=== PATIENT | female | born 1995 | race Caucasian/White ===

== ENCOUNTER 2024-03-26 15:33 | Outpatient (AMB) | payer OTHER, SELFPAY ==
--- NOTE | 2024-03-26 15:39 | MHC.PC.OV ---
Vital Signs 03/26/24 15:40 Height 5 ft 4.57 in Weight 148 lb 8 oz BMI 25.0 BP 134/60 Blood Pressure Location Lt brachial Position Sitting Pulse 110 H Pulse Source Pulse Oximeter Temp 97.3 F Temp Source Skin Pulse Oximetry (%) 97 Oxygen Delivery Method Room Air Intake Visit Reasons: establish care Intake Note: Patient is a new patient here to establish care for Depression, Sever Anxiety, PTSD, ADHD, Pre-diabetes and insulin resistant. Transferring care from Dr Dov Duval ([facility]) . Medical records have not been requested and have not received. Trade Manager Required: No Chief Program Officer: Not Required per policy Accompanied by: Self / Same As Patient Allergies hepatitis A virus vaccine Allergy (Intermediate, Verified 03/26/24 16:04) Difficulty Breathing hepatitis B virus vaccine, recombin [From Engerix-B (Hepatitis B)Vaccine] Allergy (Intermediate, Verified 03/26/24 16:04) Difficulty Breathing mmr Allergy (Intermediate, Uncoded 03/26/24 16:04) Difficulty Breathing Medication List - Last Reconciled 03/26/24 by Shania Farley PA-C bupropion HCl XL 150 mg PO BID buspirone 10 mg PO BID dextroamphetamine-amphetamine 10 mg (Adderall) 10 mg PO BID metformin 500 mg PO BID norethindrone ac-eth estradiol 1-20 mg-mcg (Junel) 1 tab PO DAILY Tobacco use date assessed: 03/26/24 Dental Screening Dental Screen Date: 03/26/24 Did you have a dental visit in the last 12 months?: Yes Did you have a dental problem in the last 6 months where you did not have access to dental care?: No Was dental information given to patient?: Patient has dentist HPI establish care HPI Details 28-year-old female coming to the office for the 1st time. Patient tells us she was previously a patient at a primary care in [facility]. She follows with a counselor Abena at [facility] once weekly and is considering increasing to twice weekly. She has been having worsening anxiety she is on BuSpar and Wellbutrin to manage her anxiety but feels it is not working at this time and would like to increase the dose. Her last primary care told her she was unable to increase the dose. She has no other concerns today. [facility] Surgical History History of D&C History of tonsillectomy and adenoidectomy History of tubal ligation Family History (Updated 03/26/24 @ 16:15 by Shania Farley PA-C) Sister Ulcerative colitis Paternal Grandfather Lung cancer Other Mental health disorder Substance use disorder Social History Housing: House Alcohol intake: never Patient Tobacco Use Status: Never used Tobacco e-Cigarette/Vaping Use: Currently Using Second Hand Smoke Exposure: No service: No Current occupational status: employed (self ) Cognitive needs: No Hearing needs: No Vision needs: Yes (Glasses/Contacts) Female Reproductive History Menstrual control method: pills and permanent sterilization Permanent Sterilization: BTL Total pregnancies: 4 Questionnaire PHQ-9 Over the last 2 weeks, how often have you been bothered by any of the following problems? 1. Little interest or pleasure in doing things: nearly every day 2. Feeling down, depressed, or hopeless: nearly every day 3. Trouble falling or staying asleep, or sleeping too much: nearly every day 4. Feeling tired or having little energy: nearly every day 5. Poor appetite or overeating: nearly every day 6. Feeling bad about yourself - or that you are a failure or have let yourself or your family down: nearly every day 7. Trouble concentrating on things, such as reading the newspaper or watching television: nearly every day 8. Moving or speaking so slowly that other people could have noticed. Or the opposite - being so fidgety or restless that you have been moving around a lot more than usual: nearly every day 9. Thoughts that you would be better off or of hurting yourself in some way: not at all Total score: 24 Depression Screening Interpretation: Positive Depression Screening Follow-up: Existing condition and In treatment Depression Screening Done: Yes Source: Developed by Drs. Bharat Roberts, Anamaria Mccallum, Josiah Khan and colleagues, with an educational vasu from [employer]. Thrive Questionnaire Date Thrive assessed: 03/16/24 I am a: Patient What is your living situation today?: I have a steady place to live Within the past 12 months, did the food you bought not last and you didn't have the money to get more?: Often true Within the past 12 months, did you worry whether your food would run out before you got money to buy more?: Often true Do you have trouble paying for medicines?: No Do you have trouble getting transportation to medical appointments?: No Do you have trouble paying your heating and electricity bill?: Yes Do you have trouble taking care of your child, family member or friend?: No Do you have trouble with day-to-day activities such as bathing, preparing meals, shopping, managing finances, etc.?: Yes Are you currently unemployed and looking for a job?: No Are you interested in more education?: No Please select the resources that you would like help with: None Currently or been in a relationship where the following occur: I choose not to answer THRIVE Score: 3 AUDIT C Alcohol Use Questionnaire (AUDIT-C) 1. How often do you have a drink containing alcohol?: Never 3. How often do you have six or more drinks on one occasion?: Never Total Score: 0 ANTHONY-7 AMB Questionnaire ANTHONY-7 Date ANTHONY - 7 assessed: 03/26/24 Feeling nervous, anxious, or on edge: 0 = Not at all Not being able to stop or control worryin = Not at all Worrying too much about different things: 0 = Not at all Trouble relaxin = Not at all Being so restless that it is hard to sit still: 0 = Not at all Becoming easily annoyed or irritable: 0 = Not at all Feeling afraid as if something awful might happen: 0 = Not at all Total ANTHONY-7 score (0-4 normal; 5-9 mild; 10-14 moderate; 15-21 severe): 0 Source: Developed by Drs. Bharat Roberts, Anamaria Mccallum, Josiah Khan and colleagues, with an educational vasu from [employer]. ANTHONY-7 Assessment Billing ANTHONY-7 Assessment Tool: ANTHONY-7 Assessment 52235 Review of Systems Const Denies body aches, Denies chills, Denies fever(s), Denies headache(s) and Denies poor appetite Eyes Reports no additional complaints ENT Denies dizziness and Denies headache(s) Card Denies chest pain, Denies syncope, Denies edema, Denies irregular heart rhythm, Denies lightheadedness and Denies dyspnea Resp Denies cough and Denies dyspnea GI Denies abdominal pain, Denies constipation, Denies diarrhea, Denies nausea and Denies vomiting Reports no additional complaints Musc Reports no additional complaints and Denies abnormal gait Skin/Breast Reports system reviewed and no additional complaints, except as documented Neuro Denies abnormal gait, Denies dizziness, Denies syncope and Denies headache(s) Psych Reports no additional complaints Physical exam (Primary Care) Vital Signs: Last Vital Signs Temp 97.3 F 03/26/24 15:40 BMI result Body Mass Index 25.0 Tobacco/Smoking Status: Tobacco use Status Patient Tobacco Use Status Never used Tobacco 03/26/24 15:39 Depression Screening Interpretation: Positive Depression Screening Follow-up: Existing condition and In treatment Thrive Assessment: Date of Thrive Assessment Date Thrive assessed 03/16/24 03/16/24 12:13 Currently or been in a relationship where the following occur: I choose not to answer Const General: cooperative, healthy appearing, comfortable and no acute distress Orientation/consciousness: patient oriented x3 HENMT Head: Yes normocephalic Ears: hearing grossly normal bilaterally General nose exam: Normal external nose present Eyes General: appearance normal, both eyes and all related structures Conjunctivae: conjunctivae normal Neck Neck: Yes full ROM and Yes no lymphadenopathy Resp Effort & Inspection: normal respiratory effort Auscultation: clear to auscultation bilaterally, no crackles, no rales, no rhonchi and no wheezes Cardio Rate: regular rate Rhythm: regular rhythm Skin General skin exam: no rashes or lesions noted Neuro General: patient oriented x3 Gait exam (Neuro): Normal gait present Extrem General: Yes normal to inspection, Yes full ROM and No edema Psych Affect: normal affect Attitude: cooperative Insight: Good insight present (Psych) Judgement: Good judgement present (Psych) Coding Level of Care Code New Pt Level 4 (33003) Diagnoses ADHD F90.9 Generalized anxiety disorder F41.1 Depression F32.A Impaired fasting glucose R73.01 Eczema L30.9 Additional Codes ANTHONY-7 Assessment Billing - ANTHONY-7 Assessment Tool: ANTHONY-7 Assessment 44078 ([id number]) Assessment & Plan Assessment & Plan (1) ADHD: Code(s): F90.9 - Attention-deficit hyperactivity disorder, unspecified type Category: Medical Plan: Patient was established on Adderall 10 mg twice daily by her last PCP she is due for refill. I discussed with the patient if she is going to have the medication prescribed through our office she will need to follow up every 3 months to maintain the prescription. Patient understands and we will work on having a psychiatrist established as well. (2) Generalized anxiety disorder: Code(s): F41.1 - Generalized anxiety disorder Category: Medical Plan: Patient having increased anxiety previously diagnosed generalized anxiety disorder. Plan to increase the BuSpar to t.i.d. at this time and continue on the Wellbutrin. I placed a referral to the outpatient psych clinic to re-evaluate medications and possible diagnoses of OCD. Also placed a referral to a psychiatrist to establish care. (3) Depression: Code(s): F32.A - Depression, unspecified Category: Medical Plan: Continue on Wellbutrin 150 mg twice daily. (4) Impaired fasting glucose: Code(s): R73.01 - Impaired fasting glucose Category: Medical Plan: Decrease the amount of carbohydrates such as pasta, bread, rice, and potatoes and limit the amount of sweets. Although fruits are generally healthy they should be eaten in moderation as they are still high in sugar. Patient currently on metformin. Ordered for updated blood work (5) Eczema: Code(s): L30.9 - Dermatitis, unspecified Category: Medical Plan: Patient has a history of eczema and has a steroid cream to used as needed. Plan Patient was informed and verbally consented to the use of an ambient scribe for clinic note documentation during this visit. This note was constructed using voice recognition software. While every effort has been made to ensure accuracy and supervisor blooming mill, still areas may have been included sometimes these areas may affect the content or meeting of the given symptoms. Total time spent caring for the patient today was 30 minutes. This includes time spent before the visit reviewing the chart, time spent during the visit, and time spent after the visit and documentation. Orders: Orders Complete Blood Count Auto Diff Today Z00.00 - Encounter for general adult medical examination without abnormal findings Vitamin B12 and Folate Today Z00.00 - Encounter for general adult medical examination without abnormal findings Vitamin D 25-OH Total Today Z00.00 - Encounter for general adult medical examination without abnormal findings Comprehensive Met. Panel Today Z00.00 - Encounter for general adult medical examination without abnormal findings Free T4 (Free Thyroxine) Today Z00.00 - Encounter for general adult medical examination without abnormal findings TSH reflex Free T4 Today Z00.00 - Encounter for general adult medical examination without abnormal findings Hemoglobin A1c Today R73.01 - Impaired fasting glucose Referrals Psychiatry Referral F32.A - Depression, unspecified, F41.1 - Generalized anxiety disorder, F90.9 - Attention-deficit hyperactivity disorder, unspecified type Psychiatry Outpatient Consultation Service F32.A - Depression, unspecified, F41.1 - Generalized anxiety disorder, F90.9 - Attention-deficit hyperactivity disorder, unspecified type Medications: New buspirone 10 mg PO TID 30 days 90 tabs 2RF
[2024-03-26 15:40] VITALS: BP 134/60; PULSE 110; TEMP 36.3; O2SAT 97; BMI 25.0
== END 2024-03-26 16:22 | disposition home or self-care (01) ==
DX: F90.9 Attention-deficit hyperactivity disorder, unspecified type (principal); F41.1 Generalized anxiety disorder; F32.A Depression, unspecified; R73.01 Impaired fasting glucose; L30.9 Dermatitis, unspecified

== ENCOUNTER → 2024-03-26 15:33 | Outpatient (BNVA) | payer OTHER, SELFPAY | DX: F90.9 Attention-deficit hyperactivity disorder, unspecified type (principal); F41.1 Generalized anxiety disorder; F32.A Depression, unspecified; R73.01 Impaired fasting glucose; L30.9 Dermatitis, unspecified | CPT/HCPCS: 96127; 99202 ==

== ENCOUNTER 2024-05-24 08:52 | Outpatient (AMB) | payer OTHER, SELFPAY ==
[2024-05-24 09:01] VITALS: BP 120/74; PULSE 107; O2SAT 99; BMI 26.0
--- NOTE | 2024-05-24 09:01 | MHC.PC.OV ---
Vital Signs 05/24/24 09:01 Height 5 ft 4.57 in Weight 154 lb 4 oz BMI 26.0 BP 120/74 Blood Pressure Location Lt brachial Position Sitting Pulse 107 H Pulse Source Pulse Oximeter Pulse Oximetry (%) 99 Oxygen Delivery Method Room Air Intake Visit Reasons: f/u anxiety and depression Software Tools Engineer Required: No Accompanied by: Self / Same As Patient Allergies hepatitis A virus vaccine Allergy (Intermediate, Verified 05/24/24 09:21) Difficulty Breathing hepatitis B virus vaccine, recombin [From Engerix-B (Hepatitis B)Vaccine] Allergy (Intermediate, Verified 05/24/24 09:21) Difficulty Breathing mmr Allergy (Intermediate, Uncoded 05/24/24 09:21) Difficulty Breathing Medication List - Last Reconciled 05/24/24 by Shania Farley PA-C bupropion HCl XL 150 mg PO BID buspirone 10 mg PO TID 30 days dextroamphetamine-amphetamine 10 mg (Adderall) 10 mg PO BID 28 days metformin 500 mg PO BID norethindrone ac-eth estradiol 1-20 mg-mcg (Junel) 1 tab PO DAILY Tobacco use date assessed: 05/24/24 Dental Screening Dental Screen Date: 05/24/24 Did you have a dental visit in the last 12 months?: Yes Did you have a dental problem in the last 6 months where you did not have access to dental care?: No Was dental information given to patient?: Patient has dentist HPI f/u anxiety and depression HPI Details 28-year-old female with past medical history of depression, generalized anxiety disorder, ADHD, impaired glucose tolerance and eczema last seen 03/2024 coming in for follow up on anxiety.? At her last visit BuSpar was increased to 3 times a day and continue no Wellbutrin and patient was referred to outpatient psych. Presenting with a follow-up visit for depression and anxiety management. Patient reports a significant lack of improvement with the BuSpar regimen, leading to further adjustment of medications with focus on Wellbutrin, which will be increased to optimize management of depression. Anxiety disorder presents with recent significant episodes, prompting consideration of new medication for acute management of anxiety attacks. Patient has insulin resistance and prediabetes, contributing to disruption of menstrual cycles and requires ongoing monitoring with emphasis on previous diagnosis of insulin resistance potentially contributing to irregularities. [facility] Surgical History History of D&C History of tonsillectomy and adenoidectomy History of tubal ligation Family History Sister Ulcerative colitis Paternal Grandfather Lung cancer Other Mental health disorder Substance use disorder Social History Housing: House Alcohol intake: never Patient Tobacco Use Status: Never used Tobacco e-Cigarette/Vaping Use: Currently Using Second Hand Smoke Exposure: No service: No Current occupational status: employed (self ) Cognitive needs: No Hearing needs: No Vision needs: Yes (Glasses/Contacts) Questionnaire PHQ-9 Over the last 2 weeks, how often have you been bothered by any of the following problems? 1. Little interest or pleasure in doing things: nearly every day 2. Feeling down, depressed, or hopeless: nearly every day 3. Trouble falling or staying asleep, or sleeping too much: nearly every day 4. Feeling tired or having little energy: nearly every day 5. Poor appetite or overeating: nearly every day 6. Feeling bad about yourself - or that you are a failure or have let yourself or your family down: nearly every day 7. Trouble concentrating on things, such as reading the newspaper or watching television: nearly every day 8. Moving or speaking so slowly that other people could have noticed. Or the opposite - being so fidgety or restless that you have been moving around a lot more than usual: nearly every day 9. Thoughts that you would be better off or of hurting yourself in some way: not at all Total score: 24 Depression Screening Interpretation: Positive Depression Screening Follow-up: Existing condition and In treatment Depression Screening Done: Yes Source: Developed by Drs. Bharat Roberts, Anamaria Mccallum, Josiah Khan and colleagues, with an educational vasu from [employer]. Thrive Questionnaire Date Thrive assessed: 05/24/24 I am a: Patient What is your living situation today?: I have a steady place to live Within the past 12 months, did the food you bought not last and you didn't have the money to get more?: Often true Within the past 12 months, did you worry whether your food would run out before you got money to buy more?: Often true Do you have trouble paying for medicines?: No Do you have trouble getting transportation to medical appointments?: No Do you have trouble paying your heating and electricity bill?: Yes Do you have trouble taking care of your child, family member or friend?: No Do you have trouble with day-to-day activities such as bathing, preparing meals, shopping, managing finances, etc.?: Yes Are you currently unemployed and looking for a job?: No Are you interested in more education?: No Please select the resources that you would like help with: None Currently or been in a relationship where the following occur: I choose not to answer THRIVE Score: 3 AUDIT C Alcohol Use Questionnaire (AUDIT-C) 1. How often do you have a drink containing alcohol?: Monthly or less 2. How many drinks containing alcohol do you have on a typical day when you are drinking?: 1 or 2 3. How often do you have six or more drinks on one occasion?: Never Total Score: 1 ANTHONY-7 AMB Questionnaire ANTHONY-7 Date ANTHONY - 7 assessed: 05/24/24 Feeling nervous, anxious, or on edge: 0 = Not at all Not being able to stop or control worryin = Not at all Worrying too much about different things: 0 = Not at all Trouble relaxin = Not at all Being so restless that it is hard to sit still: 0 = Not at all Becoming easily annoyed or irritable: 0 = Not at all Feeling afraid as if something awful might happen: 0 = Not at all Total ANTHONY-7 score (0-4 normal; 5-9 mild; 10-14 moderate; 15-21 severe): 0 Source: Developed by Drs. Bharat Roberts, Anamaria Mccallum, Josiah Khan and colleagues, with an educational vasu from [employer]. ANTHONY-7 Assessment Billing ANTHONY-7 Assessment Tool: ANTHONY-7 Assessment 95916 Review of Systems Const Denies body aches, Denies chills, Denies fever(s) and Denies poor appetite Eyes Reports no additional complaints Card Denies chest pain, Denies lightheadedness and Denies dyspnea Resp Denies dyspnea GI Denies abdominal pain, Denies nausea and Denies vomiting Reports no additional complaints Musc Reports no additional complaints and Denies abnormal gait Skin/Breast Reports system reviewed and no additional complaints, except as documented Neuro Denies abnormal gait Psych Reports no additional complaints Physical exam (Primary Care) Vital Signs: Last Vital Signs Pulse 107 H 05/24/24 09:01 BP 120/74 05/24/24 09:01 Pulse Ox 99 05/24/24 09:01 Oxygen Delivery Method Room Air 05/24/24 09:01 BMI result Body Mass Index 26.0 Tobacco/Smoking Status: Tobacco use Status Tobacco use date assessed 05/24/24 05/24/24 09:07 Patient Tobacco Use Status Never used Tobacco 05/24/24 09:07 e-Cigarette/Vaping Use Currently Using 05/24/24 09:07 PHQ-9: PHQ-9 Score PHQ-9: Total score 24 05/24/24 09:22 Depression Screening Interpretation: Positive Depression Screening Follow-up: Existing condition and In treatment Thrive Assessment: Date of Thrive Assessment Date Thrive assessed 05/24/24 05/24/24 09:07 Currently or been in a relationship where the following occur: I choose not to answer Const General: cooperative, healthy appearing, comfortable and no acute distress Orientation/consciousness: patient oriented x3 HENMT Head: Yes normocephalic Ears: hearing grossly normal bilaterally General nose exam: Normal external nose present Eyes General: appearance normal, both eyes and all related structures Conjunctivae: conjunctivae normal Neck Neck: Yes full ROM and Yes no lymphadenopathy Resp Effort & Inspection: normal respiratory effort Auscultation: clear to auscultation bilaterally, no crackles, no rales, no rhonchi and no wheezes Cardio Rate: regular rate Rhythm: regular rhythm Skin General skin exam: no rashes or lesions noted Neuro General: patient oriented x3 Gait exam (Neuro): Normal gait present Extrem General: Yes normal to inspection, Yes full ROM and No edema Psych Affect: normal affect Attitude: cooperative Insight: Good insight present (Psych) Judgement: Good judgement present (Psych) Coding Level of Care Code Est Pt Level 4 (04789) Diagnoses Impaired fasting glucose R73.01 ADHD F90.9 Generalized anxiety disorder F41.1 Depression F32.A Tachycardia R00.0 Additional Codes ANTHONY-7 Assessment Billing - ANTHONY-7 Assessment Tool: ANTHONY-7 Assessment 05016 ([id number]) Assessment & Plan Assessment & Plan (1) Impaired fasting glucose: Code(s): R73.01 - Impaired fasting glucose Category: Medical Plan: Decrease the amount of carbohydrates such as pasta, bread, rice, and potatoes and limit the amount of sweets. Although fruits are generally healthy they should be eaten in moderation as they are still high in sugar. Patient currently on metformin. Reminded about blood work (2) ADHD: Code(s): F90.9 - Attention-deficit hyperactivity disorder, unspecified type Category: Medical Plan: Patient was established on Adderall 10 mg twice daily by her last PCP she is due for refill. I discussed with the patient if she is going to have the medication prescribed through our office she will need to follow up every 3 months to maintain the prescription. Patient understands and we will work on having a psychiatrist established as well. (3) Generalized anxiety disorder: Code(s): F41.1 - Generalized anxiety disorder Category: Medical Plan: Patient having increased anxiety previously diagnosed generalized anxiety disorder. Continue on BuSpar t.i.d. and increase Wellbutrin to 450mg once a day. Also started on hydroxyzine as needed for anxiety attacks. I placed a referral to the outpatient psych clinic to re-evaluate medications and possible diagnoses of OCD. Also placed a referral to a psychiatrist to establish care. (4) Depression: Code(s): F32.A - Depression, unspecified Category: Medical Plan: Continue on Wellbutrin but increase to 450 mg once daily. (5) Tachycardia: Code(s): R00.0 - Tachycardia, unspecified Category: Medical Plan: Patient having tachycardia which she states is chronic and caused by her anxiety. Plan to obtain an EKG for further evaluation Plan Patient was informed and verbally consented to the use of an ambient scribe for clinic note documentation during this visit. This note was constructed using voice recognition software. While every effort has been made to ensure accuracy and senior librarian, still areas may have been included sometimes these areas may affect the content or meeting of the given symptoms. Total time spent caring for the patient today was 30 minutes. This includes time spent before the visit reviewing the chart, time spent during the visit, and time spent after the visit and documentation. Orders: Orders ECG 12 lead EKG Today R00.0 - Tachycardia, unspecified Medications: New bupropion HCl XL 450 mg PO DAILY 90 tabs 0RF hydroxyzine HCl 10 mg PO TID PRN 30 tabs 0RF anxiety
--- OUTSIDE RECORDS SUMMARY | 2024-05-24 09:24 | XMS_ITS | Clinical Summary ---
Author Organization [address] Address [address] [place] [address] Phone Care Team Providers Care Agricultural Mechanic Name Role Phone Dov Nieto MD Primary Care Provider Allergies No known active allergies Social History Tobacco Use Types Packs/Day Years Used Date Smoking Tobacco: Never Assessed Comments Unknown Sex and Gender Information Value Date Recorded Sex Assigned at Not on file Legal Sex Female 10:24 AM EDT Gender Identity Not on file Sexual Orientation Not on file Last Filed Vital Signs Vital Sign Reading Time Taken Comments Blood Pressure 122/79 06/23/2022 5:30 PM EDT Pulse 101 06/23/2022 5:30 PM EDT Temperature 37.3 ??C (99.1 ??F) 06/23/2022 3:54 PM ED T Respiratory Rate 26 06/23/2022 5:30 PM EDT Oxygen Saturation 100% 06/23/2022 5:30 PM EDT Inhaled Oxygen Concentration - - Weight 67.5 kg (148 lb 13 oz) 06/23/2022 3:54 PM EDT Height 160 cm (5' 3 ) 11/27/2020 10:35 AM EDT Body Mass Index 26.36 11/27/2020 10:35 AM EDT Plan of Treatment Health Maintenance Due Date Last Done Comments DTaP/TDaP Vaccines (2 - Td or Tdap) 11/12/2008 10/15/2008 HIV screening 2010 HPV vaccine series (1 - 3-dose series) 2012 Hepatitis C screening 07/30/2015 Cervical cancer screening 2018 Tetanus adult (Td q 10,TDAP once) 10/15/2018 10/15/2008 Covid-19 vaccine series ( season) 2023 06/05/2020, 05/15/2020 Influenza vaccine 10/15/2024 12/30/2020, 01/13/2020 RSV Immunization (1 - 1-dose 75+ series) 2072 MMR Vaccines Completed 09/21/2001, 07/30/1998 Varicella Vaccines Completed 10/07/2005, 07/30/1998 Hepatitis A Vaccines Aged Out 08/13/2020 No long er eligible based on patient's age to complete this topic Hepatitis B vaccine series Completed 08/13, 02/26/1998, 1997, Additional history exists HIB Vaccines Aged Out No longer eligi ble based on patient's age to complete this topic IPV Vaccines Aged Out No longer eligi ble based on patient's age to complete this topic Meningococcal Vaccine Aged Out No nestor tl eligible based on patient's age to complete this topic Pneumococcal Vaccine (2 - 49 years) Aged Out No longer eligible based on patient's age to complete this topic Rotavirus Vaccines Aged Out No longer eligible based on patient's age to complete this topic Insurance DIVERSIFIED ADMIN DIVERSIFIED ADMIN DIVERSIFIED ADMIN Care Teams Agricultural Mechanic Relationship Specialty Start Date End Date Dov Nieto MD [address] [place] [address] PCP - General Internal Medicine 11/27/20
== END 2024-05-24 09:40 | disposition home or self-care (01) ==
LOC: HO.HMCH 08:53
DX: R73.01 Impaired fasting glucose (principal); F90.9 Attention-deficit hyperactivity disorder, unspecified type; F41.1 Generalized anxiety disorder; F32.A Depression, unspecified; R00.0 Tachycardia, unspecified

== ENCOUNTER → 2024-05-24 08:52 | Outpatient (BNVA) | payer OTHER, SELFPAY | DX: R73.01 Impaired fasting glucose (principal); F90.9 Attention-deficit hyperactivity disorder, unspecified type; F41.1 Generalized anxiety disorder; F32.A Depression, unspecified; R00.0 Tachycardia, unspecified | CPT/HCPCS: 96127; 99212 ==

== ENCOUNTER 2024-09-21 10:27 | Outpatient (AMB) | payer OTHER, SELFPAY ==
--- NOTE | 2024-09-21 10:28 | MHC.PC.OV ---
Intake Visit Reasons: f/u anxiety and depression Allergies hepatitis A virus vaccine Allergy (Intermediate, Verified 09/21/24 10:48) Difficulty Breathing hepatitis B virus vaccine, recombin (From Engerix-B (Hepatitis B)Vaccine) Allergy (Intermediate, Verified 09/21/24 10:48) Difficulty Breathing mmr Allergy (Intermediate, Uncoded 09/21/24 10:48) Difficulty Breathing Medication List - Last Reconciled 09/21/24 by Shania Farley PA-C benzonatate 100 mg PO BID PRN bupropion HCl XL 150 mg PO QAM bupropion HCl XL 300 mg PO QAM buspirone 10 mg PO TID 30 days dextroamphetamine-amphetamine 10 mg (Adderall) 10 mg PO BID 28 days fluconazole 150 mg PO Q3D 2 doses guaifenesin ER (Mucinex) 600 mg PO BID hydroxyzine HCl 10 mg PO TID PRN metformin 500 mg PO BID norethindrone ac-eth estradiol 1-20 mg-mcg (Aurovela) 1 tab PO DAILY Tobacco use date assessed: 05/24/24 Dental Screening Dental Screen Date: 05/24/24 HPI f/u anxiety and depression HPI Details 28-year-old female with past medical history of depression, generalized anxiety disorder, ADHD, impaired glucose tolerance and eczema last seen 05/2024 presenting via telehealth for follow up on anxiety. At her last visit she was continued on BuSpar and Wellbutrin was increased to 450 mg daily. Patient feels her depression is well managed however she does still have frequent anxiety attacks typically 2-3 times per week. She has been using the hydroxyzine as needed but feels this dose is not high enough does not work very well for her. She is seeing the outpatient psych clinic later this month for medication adjustment. She also did complete blood work through [facility] which has not been obtained by our office as of yet. [facility] Surgical History History of D&C History of tonsillectomy and adenoidectomy History of tubal ligation Family History Sister Ulcerative colitis Paternal Grandfather Lung cancer Other Mental health disorder Substance use disorder Social History Housing: House Alcohol intake: never Patient Tobacco Use Status: Never used Tobacco e-Cigarette/Vaping Use: Currently Using Second Hand Smoke Exposure: No service: No Current occupational status: employed Cognitive needs: No Hearing needs: No Vision needs: Yes (Glasses/Contacts) Questionnaire Thrive Questionnaire Date Thrive assessed: 03/16/24 I am a: Patient What is your living situation today?: I have a steady place to live Within the past 12 months, did the food you bought not last and you didn't have the money to get more?: Often true Within the past 12 months, did you worry whether your food would run out before you got money to buy more?: Often true Do you have trouble paying for medicines?: No Do you have trouble getting transportation to medical appointments?: No Do you have trouble paying your heating and electricity bill?: Yes Do you have trouble taking care of your child, family member or friend?: No Do you have trouble with day-to-day activities such as bathing, preparing meals, shopping, managing finances, etc.?: Yes Are you currently unemployed and looking for a job?: No Are you interested in more education?: No Please select the resources that you would like help with: None Currently or been in a relationship where the following occur: I choose not to answer THRIVE Score: 3 ANTHONY-7 AMB Questionnaire ANTHONY-7 Date ANTHONY - 7 assessed: 05/24/24 Source: Developed by Drs. Bharat Roberts, Anamaria Mccallum, Josiah Khan and colleagues, with an educational vasu from [employer]. Review of Systems Const Denies body aches, Denies chills, Denies fever(s) and Denies poor appetite Eyes Reports no additional complaints Card Denies chest pain, Reports rapid heart rate, Denies lightheadedness and Denies dyspnea Resp Denies dyspnea GI Denies nausea and Denies vomiting Reports no additional complaints Psych Reports as per HPI Physical exam (Primary Care) Vital Signs: Vital signs and physical exam not performed due to nature of telehealth visit Tobacco/Smoking Status: Tobacco use Status Tobacco use date assessed 05/24/24 09/21/24 10:29 Patient Tobacco Use Status Never used Tobacco 09/21/24 10:29 e-Cigarette/Vaping Use Currently Using 09/21/24 10:29 Thrive Assessment: Date of Thrive Assessment Date Thrive assessed 03/16/24 09/21/24 10:29 Currently or been in a relationship where the following occur: I choose not to answer Telehealth Telehealth Telehealth Platform: Telephone (andriod) Location of provider rendering services: practice address Location of patient: address on file Patient Identification confirmed using: Name, : Yes Telehealth method: voice only Patient verbally consented to treatment: Yes Patient verbally consented to billing insurance company: Yes Patient informed of any privacy concerns related to visit: Yes Coding Level of Care Code Tele Est Pt Level 3 (26326) Diagnoses ADHD F90.9 Generalized anxiety disorder F41.1 Depression F32.A Tachycardia R00.0 Assessment & Plan Assessment & Plan (1) ADHD: Code(s): F90.9 - Attention-deficit hyperactivity disorder, unspecified type Category: Medical Plan: Patient was established on Adderall 10 mg twice daily by her last PCP she will continue on this medication at this time. (2) Generalized anxiety disorder: Code(s): F41.1 - Generalized anxiety disorder Category: Medical Plan: Patient feels her anxiety is well managed however she does continue to have intermittent panic attacks to 3 times per week. She will continue on the BuSpar 10 mg t.i.d. at this time and plan to increase hydroxyzine to 25 mg as needed. She is also seen outpatient psych clinic in 2 weeks for this concern. (3) Depression: Code(s): F32.A - Depression, unspecified Category: Medical Plan: Continue on Wellbutrin but increase to 450 mg once daily. (4) Tachycardia: Code(s): R00.0 - Tachycardia, unspecified Category: Medical Plan: Patient having tachycardia which she states is chronic and caused by her anxiety. Reminded about EKGs Plan This note was constructed using voice recognition software. While every effort has been made to ensure accuracy and quiller runner, still areas may have been included sometimes these areas may affect the content or meeting of the given symptoms. Total time spent caring for the patient today was 20 minutes. This includes time spent before the visit reviewing the chart, time spent during the visit, and time spent after the visit and documentation. Medications: New hydroxyzine HCl 25 mg PO BID PRN 30 tabs 0RF anxiety Refilled norethindrone ac-eth estradiol 1-20 mg-mcg (Aurovela) 1 tab PO DAILY 63 tabs 1RF Discontinued guaifenesin ER (Mucinex) Discontinued Reason: Patient no longer taking 600 mg PO BID 20 tabs 0RF fluconazole Discontinued Reason: Patient no longer taking 150 mg PO Q3D 2 tabs 0RF benzonatate Discontinued Reason: Patient Completed Course 100 mg PO BID PRN 30 caps 0RF cough hydroxyzine HCl Discontinued Reason: Patient no longer taking 10 mg PO TID PRN 30 tabs 0RF anxiety
== END 2024-09-21 11:08 | disposition home or self-care (01) ==
LOC: HO.HMCH 10:27
DX: F90.9 Attention-deficit hyperactivity disorder, unspecified type (principal); F41.1 Generalized anxiety disorder; F32.A Depression, unspecified; R00.0 Tachycardia, unspecified

== ENCOUNTER → 2024-09-21 10:27 | Outpatient (REF) | payer OTHER, SELFPAY ==
--- OUTSIDE RECORDS SUMMARY | 2024-09-21 12:48 | XMS_ITS | Clinical Summary ---
Author Organization [address] Address [address] [place] [address] Phone Care Team Providers Care Charter Boat Captain Name Role Phone Dov Nieto MD Primary [...] 101 06/23/2022 5:30 PM EDT Temperature 37.3 C (99.1 F) 06/23/2022 3:54 PM EDT Respiratory Rate 26 06/23/2022 5:30 PM EDT Oxygen Saturation 100% 06/23/2022 5:30 PM EDT Inhaled Oxygen Concentration - - Weight 67.5 kg (148 lb 13 oz) 06/23/2022 3:54 PM EDT Height 160 cm (5' 3 ) 11/27/2020 10:35 AM EDT Body Mass Index 26.36 11/27/2020 10:35 AM EDT Plan of Treatment Health Maintenance Due Date Last Done Comments HIV screening 2010 Hepatitis C screening 07/30/2015 Cervical cancer screening 2018 Tetanus adult (Td q 10,TDAP once) 10/15/2018 10/15/2008 Covid-19 vaccine series ( season) 2023 06/05/2020, 05/15/2020 Influenza vaccine 10/15/2024 12/30/2020, 01/13/2020 RSV Immunization (1 - 1-dose 75+ series) 2072 Meningococcal Vaccine Aged Out No nestor tl eligible based on patient's age to complete this topic Pneumococcal Vaccine (2 - 49 years) Aged Out No longer eligible b ased on patient's age to complete this topic Insurance DIVERSIFIED ADMIN DIVERSIFIED ADMIN DIVERSIFIED ADMIN Care Teams Charter Boat Captain Relationship Specialty Start Date End Date Dov Nieto MD [address] [facility] [[email or web address] [address] [facility] [address] PCP - General Internal Medicine 11/27/20
--- NOTE | 2024-09-21 12:59 | ECG_ITS ---
Test Reason : tachycardia Blood Pressure : */* mmHG Vent. Rate : 96 BPM Atrial Rate : 96 BPM P-R Int : 132 ms QRS Dur : 82 ms QT Int : 352 ms P-R-T Axes : 21 33 33 degrees QTcB Int : 444 ms Normal sinus rhythm Normal ECG No previous ECGs available Referred By: Shania Farley Electronically Signed By: JOSE TONG
== END ==
LOC: HO.CARD 10:27
DX: F41.1 Generalized anxiety disorder (principal); F90.9 Attention-deficit hyperactivity disorder, unspecified type; F32.A Depression, unspecified; R00.0 Tachycardia, unspecified; Z79.899 Other long term (current) drug therapy
CPT/HCPCS: 93005

== ENCOUNTER → 2024-09-21 12:59 | Outpatient (BNV) | payer OTHER, SELFPAY | PROVIDERS: Visit Provider Internal Medicine | DX: R00.0 Tachycardia, unspecified (principal) | CPT/HCPCS: 93010 ==

== ENCOUNTER 2025-01-29 11:27 | Outpatient (AMB) | payer OTHER, SELFPAY ==
--- NOTE | 2025-01-29 11:28 | A.OFFPC_ITS ---
Vital Signs 01/29/25 11:29 Height 5 ft 4.57 in Weight 129 lb 6 oz BMI 21.8 BP 110/70 Blood Pressure Location Lt brachial Position Sitting Respiration 16 Pulse 108 H Pulse Source Pulse Oximeter Temp 97.1 F Temp Source Temporal Artery Scan Pulse Oximetry (%) 99 Oxygen Delivery Method Room Air Intake Visit Reasons: annual exam Accompanied by: Self / Same As Patient Allergies hepatitis A virus vaccine Allergy (Intermediate, Verified 01/29/25 11:29) Difficulty Breathing hepatitis B virus vaccine, recombin (From Engerix-B (Hepatitis B)Vaccine) Allergy (Intermediate, Verified 01/29/25 11:29) Difficulty Breathing mmr Allergy (Intermediate, Uncoded 09/21/24 10:48) Difficulty Breathing Medication List - Last Reconciled 01/29/25 by Shania Farley PA-C bupropion HCl XL 150 mg PO QAM bupropion HCl XL 300 mg PO QAM buspirone 10 mg PO TID 30 days dextroamphetamine-amphetamine 10 mg (Adderall) 10 mg PO BID 28 days fluoxetine 20 mg PO DAILY hydroxyzine HCl 25 mg PO BID metformin 500 mg PO BID norethindrone ac-eth estradiol 1-20 mg-mcg (Aurovela) 1 tab PO DAILY tirzepatide (weight loss) (Zepbound) mg subcut Tobacco use date assessed: 01/29/25 Dental Screening Dental Screen Date: 01/29/25 Did you have a dental visit in the last 12 months?: Yes Did you have a dental problem in the last 6 months where you did not have access to dental care?: No Was dental information given to patient?: Patient has dentist HPI annual exam HPI Details 29-year-old female with past medical his tory of depression, generalized anxiety disorder, ADHD, impaired glucose tolerance and eczema last seen 09/2025 coming in for annual exam. Presenting for a general follow-up and management visit. The patient reports a history of eczema, which usually affects her face, but is currently controlled with cortisone. She reports sporadic awakenings at night but notes her sleep is better than before, and she sometimes takes hydroxyzine at bedtime. Patient reports nausea prior to eating that has been going on for several years and has been worked up by her previous PCP in determined to be anxiety eye exam: referral placed today Pap smear: referral placed today Vaccinations: flu shot given today, Td UTD [facility] Surgical History History of D&C History of tonsillectomy and adenoidectomy History of tubal ligation Family History Sister Ulcerative colitis Paternal Grandfather Lung cancer Other Mental health disorder Substance use disorder Social History Housing: House Alcohol intake: never Patient Tobacco Use Status: Never used Tobacco e-Cigarette/Vaping Use: Currently Using Second Hand Smoke Exposure: No service: No Current occupational status: employed Cognitive needs: No Hearing needs: No Vision needs: Yes (Glasses/Contacts) Questionnaire PHQ-9 Over the last 2 weeks, how often have you been bothered by any of the following problems? 1. Little interest or pleasure in doing things: nearly every day 2. Feeling down, depressed, or hopeless: nearly every day 3. Trouble falling or staying asleep, or sleeping too much: nearly every day 4. Feeling tired or having little energy: nearly every day 5. Poor appetite or overeating: nearly every day 6. Feeling bad about yourself - or that you are a failure or have let yourself or your family down: nearly every day 7. Trouble concentrating on things, such as reading the newspaper or watching television: nearly every day 8. Moving or speaking so slowly that other people could have noticed. Or the opposite - being so fidgety or restless that you have been moving around a lot more than usual: nearly every day 9. Thoughts that you would be better off or of hurting yourself in some way: not at all Total score: 24 Depression Screening Interpretation: Positive Depression Screening Follow-up: Existing condition and In treatment Depression Screening Done: Yes Source: Developed by Drs. Bharat Roberts, Anamaria Mccallum, Josiah Khan and colleagues, with an educational vasu from [email or web address]. Thrive Questionnaire Date Thrive assessed: 01/29/25 I am a: Patient What is your living situation today?: I have a steady place to live Within the past 12 months, did the food you bought not last and you didn't have the money to get more?: Often true Within the past 12 months, did you worry whether your food would run out before you got money to buy more?: Often true Do you have trouble paying for medicines?: No Do you have trouble getting transportation to medical appointments?: No Do you have trouble paying your heating and electricity bill?: Yes Do you have trouble taking care of your child, family member or friend?: No Do you have trouble with day-to-day activities such as bathing, preparing meals, shopping, managing finances, etc.?: Yes Are you currently unemployed and looking for a job?: No Are you interested in more education?: No Please select the resources that you would like help with: None Currently or been in a relationship where the following occur: I choose not to answer THRIVE Score: 3 AUDIT C Alcohol Use Questionnaire (AUDIT-C) 1. How often do you have a drink containing alcohol?: Monthly or less 2. How many drinks containing alcohol do you have on a typical day when you are drinking?: 1 or 2 3. How often do you have six or more drinks on one occasion?: Never Total Score: 1 ANTHONY-7 AMB Questionnaire ANTHONY-7 Date ANTHONY - 7 assessed: 01/29/25 Feeling nervous, anxious, or on edge: 0 = Not at all Not being able to stop or control worryin = Not at all Worrying too much about different things: 0 = Not at all Trouble relaxin = Not at all Being so restless that it is hard to sit still: 0 = Not at all Becoming easily annoyed or irritable: 0 = Not at all Feeling afraid as if something awful might happen: 0 = Not at all Total ANTHONY-7 score (0-4 normal; 5-9 mild; 10-14 moderate; 15-21 severe): 0 Source: Developed by Drs. Bharat Roberts, Anamaria Mccallum, Josiah Khan and colleagues, with an educational vasu from [email or web address]. Review of Systems Const Denies body aches, Denies fatigue, Denies fever(s), Denies frequent falls, Denies headache(s) and Denies weakness Eyes Reports no additional complaints and Denies change in vision ENT Denies dysphagia, Denies dizziness, Denies facial pain, Denies headache(s), Denies nasal congestion and Denies odynophagia Card Denies chest pain, Denies syncope, Denies irregular heart rhythm, Denies leg edema, Denies lightheadedness and Denies dyspnea Resp Denies cough and Denies dyspnea GI Denies abdominal pain, Denies constipation, Denies dysphagia, Denies dyspepsia, Denies diarrhea, Reports nausea, Denies odynophagia and Denies vomiting Denies urinary frequency, Denies dysuria, Denies urinary hesitancy and Denies urinary urgency Musc Denies back pain and Denies myalgias Skin/Breast Reports system reviewed and no additional complaints, except as documented Neuro Denies dizziness, Denies syncope, Denies frequent falls, Denies headache(s) and Denies weakness Psych Reports no additional complaints Endo Denies fatigue Physical exam (Primary Care) Vital Signs: Last Vital Signs Temp 97.1 F 01/29/25 11:29 Pulse 108 H 01/29/25 11:29 Resp 16 01/29/25 11:29 BP 110/70 01/29/25 11:29 Pulse Ox 99 01/29/25 11:29 Oxygen Delivery Method Room Air 01/29/25 11:29 BMI result Body Mass Index 21.8 Tobacco/Smoking Status: Tobacco use Status Tobacco use date assessed 01/29/25 01/29/25 11:38 Patient Tobacco Use Status Never used Tobacco 01/29/25 11:38 e-Cigarette/Vaping Use Currently Using 01/29/25 11:38 PHQ-9: PHQ-9 Score PHQ-9: Total score 24 01/29/25 12:27 Depression Screening Interpretation: Positive Depression Screening Follow-up: Existing condition and In treatment Thrive Assessment: Date of Thrive Assessment Date Thrive assessed 01/29/25 01/29/25 11:38 Currently or been in a relationship where the following occur: I choose not to answer Const General: cooperative, healthy appearing, comfortable and no acute distress Orientation/consciousness: patient oriented x3 HENMT Head: Yes normocephalic Ears: hearing grossly normal bilaterally, external ears normal, TM's normal bilaterally and EAC's normal General nose exam: Normal external nose present Face and sinus: Yes normal facial exam and Yes sinuses nontender Mouth: Normal oral and palatal mucosa present and tongue normal Throat: Yes posterior oropharynx normal Eyes General: appearance normal, both eyes and all related structures Conjunctivae: conjunctivae normal Pupils: Equal, round and reactive pupils present EOM: EOMs intact bilaterally and No Nystagmus present Neck Neck: Yes normal visual inspection, Yes full ROM and Yes no lymphadenopathy Chest Chest palpation & inspection: normal inspection of the chest Resp Effort & Inspection: normal respiratory effort Auscultation: clear to auscultation bilaterally, no crackles, no rales, no rhonchi, no wheezes and breath sounds present Cardio Rate: regular rate Rhythm: regular rhythm Peripheral pulses: radial pulses present and dorsalis pedis present GI Inspection: Yes normal to inspection and No Abdominal wall edema Palpation (GI): Soft to palpation, not firm and nontender Auscultation: normal bowel sounds Rectal Exam - Female: deferred General: Yes no CVA tenderness Back/Spine/Pelvis Back: no CVA tenderness Skin General skin exam: no rashes or lesions noted Neuro General: patient oriented x3 Cranial nerves: Yes Equal, round and reactive pupils present, Yes Midline tongue present, Yes Ability to bilaterally elevate shoulders present and No Nystagmus present Gait exam (Neuro): Normal gait present Extrem General: Yes normal to inspection, Yes full ROM, No no pedal edema and No edema Psych Speech and movement: Normal speech and movement present Affect: normal affect Insight: Good insight present (Psych) Judgement: Good judgement present (Psych) Office Procedures Flu Questionnaire Does the patient have a severe egg allergy?: No Does the patient have severe life threatening allergies?: No Does the patient have a fever or illness today?: No Has the patient ever had Guillain-[place] Syndrome?: No Has the patient ever had any past reaction to a flu shot?: No Immunizations Fluarix [id number] (PF) 45 mcg (15 mcg x 3)/0.5 mL IM syringe Performing Provider: Shania Farley PA-C Performing Location: [facility] [place] [place] [facility] Administered by: Yamileth Irving LPN on 01/29/25 12:27 Dose Route Admin Location Dispensed Lot Number Expiration Date NDC Wire Galvanizer 0.5 mL IM Left Deltoid 0.5 mL [id number] 08/13/25 [id number] [employer] VIS Given Date VIS Provided VIS Publication Date 01/29/25 Single Vaccine 24 Eligibility Eligibility Date Funding Source Not [facility] Eligible 01/29/25 Private Coding Level of Care Code Est Pt Prev Care 18-39y([id number]) Diagnoses Annual physical exam Z00.00 ADHD F90.9 Generalized anxiety disorder F41.1 OCD (obsessive compulsive disorder) F42.9 Depression F32.A Tachycardia R00.0 Impaired fasting glucose R73.01 Eczema L30.9 Nausea R11.0 Assessment & Plan Assessment & Plan (1) Annual physical exam: Code(s): Z00.00 - Encounter for general adult medical examination without abnormal findings Category: Medical Plan: Patient is up-to-date on all recommended routine screenings vaccinations for her age. She will be due for Pap smear soon and does not have a client engagement manager. Referral was placed to gynecology today. She was given flu shot in the office today and is up-to-date on all vaccinations. Blood work is up-to-date and plan to obtain these results through [facility] work. Healthy diet and regular exercise is encouraged. Follow up in 6 months or sooner as needed (2) ADHD: Code(s): F90.9 - Attention-deficit hyperactivity disorder, unspecified type Category: Medical Plan: Recent adjustments with her Adderall has been tolerated well. She will continue to follow with her psychiatrist. (3) Generalized anxiety disorder: Code(s): F41.1 - Generalized anxiety disorder Category: Medical Plan: Patient feels her anxiety is well managed however she does continue to have intermittent panic attacks to 3 times per week. She will continue on the BuSpar 10 mg t.i.d. at this time and hydroxyzine 25 mg as needed. She has been following with psychiatrist and recent increase in the Prozac and changed Adderall dose. Next appointment coming up later this month. (4) OCD (obsessive compulsive disorder): Code(s): F42.9 - Obsessive-compulsive disorder, unspecified Category: Medical Plan: See above (5) Depression: Comment: Weekly counseling compassionate counseling Psych med provider monthly Code(s): F32.A - Depression, unspecified Category: Medical Plan: Continue on Wellbutrin but increase to 450 mg once daily. Recent increase in PRozac to 20mg and continue to follow up with psych and counseling. (6) Tachycardia: Code(s): R00.0 - Tachycardia, unspecified Category: Medical Plan: The patient's heart rate was noted to be slightly fast, which is a known side effect of Adderall. The heart rate will be monitored, and discontinuing Adderall is not recommended at this time as it may worsen anxiety and subsequently increase the heart rate further. Medication to lower the heart rate is an option if she develops symptoms like palpitations. (7) Impaired fasting glucose: Code(s): R73.01 - Impaired fasting glucose Category: Medical Plan: Decrease the amount of carbohydrates such as pasta, bread, rice, and potatoes and limit the amount of sweets. Although fruits are generally healthy they should be eaten in moderation as they are still high in sugar. Patient currently on metformin. continue on Zepbound injection. Following with Endo through [facility]. (8) Eczema: Code(s): L30.9 - Dermatitis, unspecified Category: Medical Plan: Patient has a history of eczema and has a steroid cream to used as needed. (9) Nausea: Code(s): R11.0 - Nausea Category: Medical Plan: Patient reports nausea prior to eating that has been going on for several years. This was evaluated by her last PCP in determined to be related to anxiety. She denies any vomiting or abdominal pain associated with the nausea and nausea only occurs prior to eating. Discussed working with counselor and psychiatrist for this concern. We also discussed homeopathic treatments for nausea such as xavier for patient to try. Rocco sent for severe episodes of nausea but advised this is not a daily medication and should only be used as needed for refractory nausea Plan This note was constructed using voice recognition software. While every effort has been made to ensure accuracy and mate relief, still areas may have been included sometimes these areas may affect the content or meeting of the given symptoms. Total time spent caring for the patient today was 30 minutes. This includes time spent before the visit reviewing the chart, time spent during the visit, and time spent after the visit and documentation. Patient was informed and verbally consented to the use of an ambient scribe for clinic note documentation during this visit. Orders: Orders Influenza [id number] Immunization Today Z23 - Encounter for immunization Referrals [facility]EARCH COMPUTING SPECIALIST Referral Z12.4 - Encounter for screening for malignant neoplasm of cervix Optometry Referral Z00.00 - Encounter for general adult medical examination without abnormal findings Medications: New triamcinolone acetonide 0.5% 1 appl topical DAILY 15 grams 0RF ondansetron 4 mg PO Q8H PRN 20 tabs 0RF nausea and vomiting
[2025-01-29 11:29] VITALS: BP 110/70; PULSE 108; RESP 16; TEMP 36.2; O2SAT 99; BMI 21.8
--- OUTSIDE RECORDS SUMMARY | 2025-01-29 15:07 | XMS_ITS | Clinical Summary ---
Author Organization [address] Address [address] [place] [address] Phone Care Team Providers Care Renal Social Worker Name Role Phone Dov Nieto MD Primary [...] adult (Td q 10,TDAP once) 10/15/2018 10/15/2008 Influenza vaccine 09/14/2024 12/30/2020, 01/13/2020 Covid-19 vaccine series (3 - 2024- season) 2024 06/05/2020, 05/15/2020 RSV Immunization (1 - 1-dose 75+ series) 2072 Meningococcal B Vaccine Aged Out No l onger eligible based on patient's age to complete this topic Meningococcal Vaccine Aged Out No nestor tl eligible based on patient's age to complete this topic Pneumococcal Vaccine (2 - 49 years) Aged Out No longer eligible b ased on patient's age to complete this topic Insurance DIVERSIFIED ADMIN DIVERSIFIED ADMIN DIVERSIFIED ADMIN Care Teams Renal Social Worker Relationship Specialty Start Date End Date Dov Nieto MD [address] [facility] [address] [place] [address] PCP - General Internal Medicine 11/27/20
--- OUTSIDE RECORDS SUMMARY | 2025-01-29 15:07 | XMS_ITS ---
Author Name [facility] Organization Unknown History of Medication Use Medication Directions Dispensed Refills Start Date End Date Stat us tirzepatide (ZEPBOUND) 5 mg/0.5 mL pen injector Inject 1 (one) Pen (5 mg total) under the skin every 7 days. 11/21/2024 active tirzepatide (ZEPBOUND) 2.5 mg/0.5 mL pen injector Inject 1 (one) Pen (2.5 mg total) under the skin every 7 days. 10/09/2024 active buPROPion (WELLBUTRIN XL) 150 MG 24 hr XL tablet Take 1 (one) tablet (150 mg total) by mouth once daily. active buPROPion (WELLBUTRIN XL) 300 MG 24 hr XL tablet Take 1 (one) tablet (300 mg total) by mouth once daily. active busPIRone (BUSPAR) 10 MG tablet Take 1 (one) tablet (10 mg total) by mouth 3 (three) times a day. active dextroamphetamine-amph etamine (ADDERALL) 20 mg tablet Take 1 (one) tablet (20 mg total) by mouth once daily. active FLUoxetine (PROZAC) 10 MG capsule Take 1 (one) capsule (10 mg total) by mouth once daily. active metFORMIN (GLUCOPHAGE-XR) 500 MG 24 hr tablet Take 4 (four) tablets (2,000 mg total) by mouth once daily. active norethindrone ac/eth estradiol (, ORAL) Take 1 tablet by mouth once daily. active Problems Problem Status Onset Date Problem Type Date of Resolution Source Abnormal weight gain active 2024-10-08 ProblemAct [facility] Prediabetes active EncounterDiagnosisAct [facility] B12 deficiency active EncounterDiagnosisAct [facility] Fatigue active 2024-10-08 ProblemAct [facility] Insulin resistance active 2024-10-08 ProblemAct [facility] Overweight (BMI 25.0-29.9) active EncounterDiagnosisAct [facility] Irregular periods active 2024-10-08 ProblemAct [facility] Immunizations Vaccine Date Source Lot Number Status Influenza Quadrivalent Multi Dose 01/13/2020 [facility] [id number] completed Meningococcal Conjugate MCV4P (Menactra) 09/17/2015 [facility] [id number] completed HPV Quadrivalent 08/30/2013 [facility] complete d HPV Quadrivalent 06/02/2012 [facility] complete d HPV Quadrivalent 03/09/2012 [facility] complete d Meningococcal Conjugate MCV4P (Menactra) 10/06/2011 [facility] completed H1N1 Unspecified 04/01/2009 [facility] complete d Tdap 10/15/2008 [facility] completed Varicella 10/07/2005 [facility] completed DTAP 10/01/2002 [facility] completed IPV 10/01/2002 [facility] completed MMR 09/21/2001 [facility] completed DTAP 03/02/1999 [facility] completed IPV 03/02/1999 [facility] completed Hib HBOC 11/08/1998 [facility] completed MMR 07/30/1998 [facility] completed Varicella 07/30/1998 [facility] completed DTAP 02/26/1998 [facility] completed Hepatitis B 02/26/1998 [facility] completed Hib HBOC 02/26/1998 [facility] completed DTAP 1997 [facility] completed Hib Unspecified 1997 [facility] completed IPV 1997 [facility] completed DTAP 1997 [facility] completed Hib Unspecified 1997 [facility] completed IPV 1997 [facility] completed Hepatitis B 1997 [facility] completed Hepatitis B 1997 [facility] [id number] completed
== END 2025-01-29 12:20 | disposition home or self-care (01) ==
LOC: HO.HMCH 11:27
DX: Z00.00 Encounter for general adult medical examination without abnormal findings (principal); F90.9 Attention-deficit hyperactivity disorder, unspecified type; F41.1 Generalized anxiety disorder; F42.9 Obsessive-compulsive disorder, unspecified; F32.A Depression, unspecified; R00.0 Tachycardia, unspecified; R73.01 Impaired fasting glucose; L30.9 Dermatitis, unspecified; R11.0 Nausea; Z23 Encounter for immunization

== ENCOUNTER → 2025-01-29 11:27 | Outpatient (BNVA) | payer OTHER, SELFPAY | DX: Z23 Encounter for immunization (principal); Z00.00 Encounter for general adult medical examination without abnormal findings; F90.9 Attention-deficit hyperactivity disorder, unspecified type; F41.1 Generalized anxiety disorder; F42.9 Obsessive-compulsive disorder, unspecified; F32.A Depression, unspecified; R00.0 Tachycardia, unspecified; R73.01 Impaired fasting glucose; L30.9 Dermatitis, unspecified; R11.0 Nausea | CPT/HCPCS: 90471; 90656; 99395 ==